=== PATIENT | female | born 1950 | race Caucasian/White ===

== ENCOUNTER → 2017-11-26 15:19 | Outpatient (CLI) | payer MEDICARE, OTHER, SELFPAY ==
--- NOTE | 2017-11-26 15:22 | MR_ITS ---
MR lumbar spine wo con, MR 3-d myelogram/MRCP HISTORY: LT sided LBP with pain, numbness, and tingling down lt leg. Bilateral hip pain. Symptoms XYRS. No trauma ITS.REASON: LUMBAGO WITH SCIATICA, LUMBAR DISC DISEASE ORDERING PHYSICIAN: Blaine Kyle MD PATIENT AGE: 67 years Comparison: MRI 06-28-13 TECHNIQUE: Standard multiplanar multiecho sequences are performed without contrast. 3-D MIP and myelographic images are also rendered and reviewed FINDINGS: The spinal cord ends at the T12-L1 level. Multilevel degenerative disc disease is present. T12-L1: Degenerative disc disease with mild bulging disc. L1-L2: Degenerative disc disease with bulging disc with type I endplate changes. There is moderate left-sided foraminal narrowing. L2-L3: Degenerative disc disease with bulging disc with facet and ligamentum hypertrophy with bilateral lateral recess narrowing and mild bilateral foraminal narrowing. L3-L4: Degenerative disc disease with bulging disc along with facet and ligamentum flavum hypertrophy with moderate lateral recess narrowing right greater than left and mild to moderate bilateral foraminal narrowing. L4-L5: Degenerative disc disease with bulging disc along with facet and ligamentum hypertrophy. There is minimal right paracentral disc protrusion. There is moderate right-sided lateral recess narrowing. There is 3 mm anterolisthesis of L4 on L5. There is moderate right-sided foraminal narrowing. L5-S1: Disc disease with bulging disc facet and ligamentum flavum hypertrophy. There is moderate left-sided foraminal narrowing. There is mild lumbar scoliosis convex right and there is 5 mm right lateral translation of L2 on L3. IMPRESSION: Multilevel degenerative disc disease with bulging disc along with facet and ligamentum hypertrophy with foraminal and lateral recess narrowing. This is described in detail above. Please see above for detailed description at each level. No canal stenosis. Overall no significant change compared to the previous exam IMPRESSION:
== END ==
PROVIDERS: Family Provider Family Medicine; PCP Family Medicine; Visit Provider Family Medicine
DX: M54.42 Lumbago with sciatica, left side (principal); M54.41 Lumbago with sciatica, right side; M51.9 Unspecified thoracic, thoracolumbar and lumbosacral intervertebral disc disorder; M51.26 Other intervertebral disc displacement, lumbar region; M46.96 Unspecified inflammatory spondylopathy, lumbar region
CPT/HCPCS: 72148; 76376

== ENCOUNTER → 2018-03-17 09:40 | Outpatient (CLI) | payer MEDICARE, OTHER, SELFPAY ==
--- NOTE | 2018-03-17 09:43 | MM_ITS ---
MM Dig screening mamm BI w/CAD ORDERING PHYSICIAN : Erik Long PATIENT AGE: 67 years GENDER: Female COMPARISON: July 2016, May 2015, December 2012. INDICATION: ITS.REASON: SCREENING no hormones. No new complaints. Family history. Maternal aunt with breast cancer TECHNIQUE: Standard CC and MLO images were obtained. R2 CAD reviewed. FINDINGS: minimal residual fibroglandular elements throughout both breasts.Relatively lower density breast . No dominant mass nor suspicious calcification of concern. Scattered small intramammary nodes at the deep axillary left breast more so than right, appear stable... There is subtle accentuation of fibroglandular elements throughout both breasts but there is no history of 8 cm hormone this could be due to technique or some other medication effect. Clinical correlation required. Bilateral follow-up in one year adequate IMPRESSION: No significant new findings. No mass lesion evident. Follow-up in one year recommended . Only suggestion of perhaps subtle diffuse accentuation of fibroglandular elements-throughout both breasts.. Technique vs question possible exogenous hormones effect of some form. BI-RADS Category: 2 Benign Finding(s) RECOMMENDED FOLLOW-UP: 1YR 1 YEAR FOLLOW-UP (A letter has been sent to the patient regarding results of the study.)
== END ==
PROVIDERS: PCP Family Medicine; Visit Provider Obstetrics & Gynecology Gynecology
DX: Z12.31 Encounter for screening mammogram for malignant neoplasm of breast (principal)
CPT/HCPCS: 77067

== ENCOUNTER → 2018-12-23 10:55 | Outpatient (CLI) | payer MEDICARE, OTHER, SELFPAY | PROVIDERS: PCP Family Medicine; Visit Provider Family Medicine | DX: R00.2 Palpitations (principal) | CPT/HCPCS: 93005 ==

== ENCOUNTER → 2019-03-24 15:09 | Outpatient (CLI) | payer MEDICARE, OTHER, SELFPAY ==
--- NOTE | 2019-03-24 15:18 | MM_ITS ---
PROCEDURE: MM DIG SCREENING MAMM BI W/CAD Patient Age:68Y CLINICAL INDICATION: SCREENING no hormones but no new complaints. Family history: Maternal aunt with breast cancer COMPARISON: DIGMAMMS MAMMOGRAM SCREEN-INFORMATION SYSTEMS OPERATOR N/C from 03/14/2009 DMSB DIGITAL MAMM-SCREEN BILATERAL from 12/31/2011 DMDXUAVR DIG MAMM-DX UNIL ADD VIEWS-RT from 01/22/2012 DMSB DIG MAMM-SCREEN MAXIMINO from 01/05/2013 DMSB DIG MAMM-SCREEN MAXIMINO from 06/04/2015 DMSB DIG MAMM-SCREEN MAXIMINO W/CAD from 07/24/2016 [facility] MM Dig screening mamm BI w/CAD from 03/17/2018 TECHNIQUE: Standard CC and MLO images were obtained. R2 CAD reviewed. Additional CC view right breast, nipple profile FINDINGS: Minimal residual fibroglandular elements are seen bilaterally. No new areas of significant concern. No dominant or suspicious mass, no suspicious calcifications Left breast. No significant new findings. Stable small intramammary node lateral left breast 4.3 mm size Stable tissue inferior left breast MLO view Right breast no new areas of significant concern. Minor asymmetric areas density again seen today and similar to previous studies,-can be followed in 1 year Overall the study appears similar to digital mammogram from 2011 IMPRESSION: Stable bilateral mammogram. No new areas of significant concern Bilateral follow-up 1 year recommended; and should be emphasized/encouraged.. BI-RAD Category: 2 Benign Finding(s) FOLLOW-UP: 1YR 1 Year Follow-up (A letter has been sent to the patient regarding results of the study.) Dictated by: Sree Thorne MD 03/30/2019 13:28 Electronically signed by Sree Thorne MD in [place] 03/30/2019 13:28
== END ==
PROVIDERS: PCP Family Medicine; Visit Provider Obstetrics & Gynecology Gynecology
DX: Z12.31 Encounter for screening mammogram for malignant neoplasm of breast (principal)
CPT/HCPCS: 77067

== ENCOUNTER → 2020-01-23 09:27 | Outpatient (POV) | payer MEDICARE, OTHER, SELFPAY | PROVIDERS: Visit Provider Dermatology | DX: Z00.00 Encounter for general adult medical examination without abnormal findings (principal) ==

== ENCOUNTER → 2020-02-04 10:08 | Outpatient (CLI) | payer MEDICARE, OTHER, SELFPAY | PROVIDERS: PCP Family Medicine; Visit Provider Internal Medicine Gastroenterology | DX: Z01.818 Encounter for other preprocedural examination (principal) ==

== ENCOUNTER 2020-02-05 12:18 | Day surgery (SDC) | payer MEDICARE, OTHER, SELFPAY ==
[2020-01-30 16:18] VITALS: BMI 30.9
[2020-02-04 12:02] LABS: Coronavirus 19 IgG Antibody Negative (Negative); Coronavirus 19 IgM Antibody Negative (Negative)
[2020-02-05 13:37] VITALS: BP 151/66; PULSE 57; RESP 18; TEMP 36.7; O2SAT 99
--- NOTE | 2020-02-05 14:55 | HMH.ANESCL ---
[facility] Anesthesia Checklist - Structural Data Admitted From: Home Planned Operative Procedure/s: colonoscopy Consent for Planned Operative Procedure(s) Verified: Yes - Airway Assessment C-Spine Mobility Assessed: Yes TMJ Mobility Assessed: Yes Dentition: Good Dentition - Neurological Assessment Level of Consciousness: Awake, Alert, Appropriate - Anesthesia Plan Anesthesia Risk discussed: Yes Anesthesia Plan: Verified ASA Class: II Anesthesia Type: MAC [facility] History I have reviewed the patient's past medical history: Yes Medical History: Denies:: Cancer, Diabetes Mellitus Type 1, Diabetes Mellitus Type 2, Internal Pacemaker, MRSA, Seizures *Have you ever received a pneumonia vaccine?: Yes *Have you received a flu vaccine this season?: Yes Anesthesia experience/problems:: none Laterality Cases: Bilateral: Cataract Other Surgeries: No: Pacemaker Amputation: No Fractures: No - *Social History Alcohol Intake: never Substance Use Type: denies use *Occupational Status:: employed Housing: house Household Members: spouse *Travel in the last 8 weeks: None Family Hx:: No significant family history
--- NOTE | 2020-02-05 15:01 | P.PCN_ITS ---
[facility] Procedure Note Procedure Note:: Colonoscopy Procedure Report: Colonoscopy with cold snare polypectomy Endoscopist: Quentin Cummings II, MD Referring physician: Blaine Kyle MD Date of Procedure: February 05, 2020 Equipment: Olympus 180 variable stiffness pediatric colonoscope Sedation: MAC sedation Indication: Mrs. Evans is a 69-year-old female who is here for screening/surveillance colonoscopy. Her last colonoscopy 10 years ago was normal. She reports no abdominal pain, weight loss, change in her bowel habits or rectal bleeding. She reports no family history of colon cancer. Procedure: Prior to the procedure, a history and physical exam was performed, and patient's medications and allergies were reviewed. The risks, benefits and alternatives of the sedation and procedure were discussed with the patient. All questions were answered and informed consent was obtained. The patient was brought to the procedure room. Patient identification and proposed procedure were verified by the physician and the nurse. The patient was placed in a left lateral decubitus position and the scope was passed under direct vision. Throughout the procedure, the patient's blood pressure, pulse, and oxygen saturations were monitored continuously. The colonoscopy was accomplished without difficulty. The patient tolerated the procedure well. Findings: On digital rectal examination there was normal rectal tone. There were no external hemorrhoids. The colonoscope was introduced through the anal canal to the rectum and advanced to the cecum. The ileocecal valve and appendiceal orifice were identified. The scope was advanced a short distance into the ileum which appeared grossly normal. The scope was then withdrawn into the colon. Within the cecum there was a 3 to 4 mm polyp that was removed via cold snare polypectomy. The remaining ascending and transverse colon and mucosa were grossly normal. There were scattered diverticuli throughout the descending and sigmoid colon (LEFT colon). The rectum itself was normal. Upon retroflexion within the rectum there were grade 1-2 internal hemorrhoids. The preparation was excellent throughout with Crowell Preparation Score of 9. The cecal time was 12 minutes. Impression: 1. Diminutive cecal polyp 2. Left-sided diverticulosis 3. Grade 1-2 internal hemorrhoids Plan: I will follow up the polyp pathology and recommend repeat colonoscopy again in 7-10 years based upon the polyp histology. I would encourage fiber supplementation on a long-term daily maintenance basis.
[2020-02-05 15:05] VITALS: BP 93/66; PULSE 60; RESP 18; TEMP 36.6; O2SAT 95
[2020-02-05 15:15] VITALS: BP 115/69; PULSE 65; RESP 18; O2SAT 96
[2020-02-05 15:17] VITALS: O2SAT 97
[2020-02-05 15:25] VITALS: BP 125/81; PULSE 67; RESP 18; O2SAT 100
[2020-02-05 15:42] VITALS: BP 127/77; PULSE 54; RESP 18; O2SAT 96
== END 2020-02-05 15:42 | disposition home or self-care (01) ==
LOC: OUTP 12:19
PROVIDERS: PCP Family Medicine; Visit Provider Internal Medicine Gastroenterology
PROC: 0DJD8ZZ Inspection of Lower Intestinal Tract, Via Natural or Artificial Opening Endoscopic (ICD-10-PCS; CPT 45378; principal; 2020-02-05 13:30)
DX: Z12.11 Encounter for screening for malignant neoplasm of colon (principal); K63.5 Polyp of colon; K57.30 Diverticulosis of large intestine without perforation or abscess without bleeding; K64.0 First degree hemorrhoids; I10 Essential (primary) hypertension; E78.5 Hyperlipidemia, unspecified; K21.9 Gastro-esophageal reflux disease without esophagitis
CPT/HCPCS: 45385; 36415; 86328; 88305

== ENCOUNTER → 2020-11-06 15:00 | Outpatient (CLI) | payer MEDICARE, OTHER, SELFPAY ==
--- NOTE | 2020-11-06 15:01 | MM_ITS ---
PROCEDURE: MM DIG SCREENING MAMM BI W/CAD Digital Breast Tomosynthesis Included CLINICAL INDICATION: screening COMPARISON: MG DMSB DIG MAMM-SCREEN MAXIMINO W/CAD from 07/24/2016 MG [facility] MM Dig screening mamm BI w/CAD from 03/17/2018 MG MM DIG SCREENING MAMM BI W/CAD from 03/24/2019 TECHNIQUE: Standard CC and MLO images and 3D Tomosynthesis was obtained. R2 CAD reviewed. FINDINGS: There are scattered fibroglandular elements which may obscure a lesion on mammography. No new dominant mass or indirect evidence of malignancy. No suspicious type microcalcifications. IMPRESSION: Normal bilateral digital screening mammograms. BI-RAD Category: 1 Negative FOLLOW-UP: 1 YR 1 Year Follow-up (A letter has been sent to the patient regarding results of the study.) Dictated by: Hernan Hudson MD 11/07/2020 15:55 Hernan Hudson MD in [place] 11/07/2020 15:55
== END ==
PROVIDERS: PCP Family Medicine; Visit Provider Obstetrics & Gynecology
DX: Z12.31 Encounter for screening mammogram for malignant neoplasm of breast (principal)
CPT/HCPCS: 77063; 77067

== ENCOUNTER → 2021-01-02 08:25 | Outpatient (CLI) | payer MEDICARE, OTHER, SELFPAY ==
[2021-01-02 10:10] LABS: Alanine Aminotransferase 29 U/L (12-78); Albumin Level 4.1 g/dl (3.5-5.0); Albumin/Globulin Ratio 1.8 (1.1-1.8); Alkaline Phosphatase 73 U/L (38-126); Anion Gap 13.2 mEq/L (5-15); Aspartate Amino Transferase 35 U/L (14-36); Bilirubin,Total 0.7 mg/dl (0.2-1.3); Blood Urea Nitrogen 16 mg/dl (7-17); Calcium 9.4 mg/dl (8.4-10.2); Carbon Dioxide 30 mmol/L (22.0-30.0); Chloride 103 mmol/L (98-107); Chol/HDL Ratio 3.6 (1-3.5); Cholesterol 199 mg/dl (140-200); Estimated Glomerular Filt Rate 83 ml/min (>60); GFR (African American) 101 ML/MIN (>60); Globulin 2.3 g/dL (1.3-3.2); Glucose 110 mg/dl (74-100); HDL Cholesterol 56 mg/dl (40-60); Potassium 4.2 mmoL/L (3.5-5.1); Sodium 142 mmol/L (136-145); Total Protein,Serum 6.4 g/dl (6.3-8.2); Triglycerides 120 mg/dl (30-150); VLDL Cholesterol 24 mg/dL (0-40)
[2021-01-02 10:21] LABS: Direct LDL Cholesterol 109.98 mg/dL (100-129)
[2021-01-02 11:15] LABS: Hemoglobin A1C 5.5 % (4.0-6.0)
== END ==
PROVIDERS: Visit Provider Physician Assistant
DX: I10 Essential (primary) hypertension (principal); R73.9 Hyperglycemia, unspecified; E78.00 Pure hypercholesterolemia, unspecified
CPT/HCPCS: 36415; 80053; 80061; 83036

== ENCOUNTER → 2021-12-11 13:11 | Outpatient (CLI) | payer MEDICARE, OTHER, SELFPAY ==
--- NOTE | 2021-12-11 13:11 | MM_ITS ---
PROCEDURE INFORMATION: Exam: MG Bilateral Screening 3D Mammography Exam date and time: 12/11/2021 1:17 PM Age: 71 years old Clinical indication: Screening examination TECHNIQUE: Imaging protocol: Bilateral Screening tomosynthesis and 2D mammography including computer-aided detection (CAD) when performed. COMPARISON: 1. MG MM DIG SCREENING MAMM BI W/CAD 11/06/2020 3:14 PM 2. MG MM DIG SCREENING MAMM BI W/CAD 03/24/2019 3:38 PM FINDINGS: MAMMOGRAPHY: Breast composition: There are scattered areas of fibroglandular density. Mass: None. Architectural distortion: None. Calcifications: No suspicious calcifications. Asymmetric density: None. Skin thickening: None. Axillary adenopathy: None. IMPRESSION: No mammographic evidence of malignancy. Annual screening is recommended unless otherwise clinically indicated. ASSESSMENT: BI-RADS Category 1: Negative
== END ==
PROVIDERS: PCP Family Medicine; Visit Provider Obstetrics & Gynecology
DX: Z12.31 Encounter for screening mammogram for malignant neoplasm of breast (principal)
CPT/HCPCS: 77063; 77067

== ENCOUNTER → 2021-12-29 10:44 | Outpatient (CLI) | payer MEDICARE, OTHER, SELFPAY | PROVIDERS: PCP Family Medicine; Visit Provider Family Medicine | DX: R00.2 Palpitations (principal) | CPT/HCPCS: 93225; 93226 ==

== ENCOUNTER → 2022-01-05 08:24 | Outpatient (CLI) | payer MEDICARE, OTHER, SELFPAY ==
--- NOTE | 2022-01-05 08:31 | CT_ITS ---
FINAL REPORT TECHNIQUE: Thin-section axial images were obtained through the heart and coronary arteries per CT coronary calcium score protocol. This study was performed with techniques to keep radiation doses as low as reasonably achievable (ALARA). Individualized dose reduction techniques using automated exposure control or adjustment of mA and/or kV according to the patient's size were employed. CLINICAL HISTORY: . family hx of CAD, screening FINDINGS: CT CORONARY CALCIUM SCORE W/O On the axial images, there is calcification within the left anterior descending coronary artery. This gives a coronary artery calcium score of 97 based on the Agatston scale. This coronary artery calcium score places the patient within the 70th percentile based on age and gender. The heart size is normal. There is no pleural or pericardial effusion. Limited evaluation of the lungs reveal no suspicious nodule. IMPRESSION: Coronary artery calcium score of 97 based on the Agatston scale placing the patient within the 70th percentile based on age and gender. Reviewed, Interpreted and Dictated by Devante Carroll III, MD Transcribed by Melissa Silva Authenticated and [facility]
== END ==
PROVIDERS: PCP Family Medicine; Visit Provider Family Medicine
DX: Z82.49 Family history of ischemic heart disease and other diseases of the circulatory system; Z13.6 Encounter for screening for cardiovascular disorders
CPT/HCPCS: 75571

== ENCOUNTER → 2022-04-14 13:12 | Outpatient (POV) | payer MEDICARE, OTHER, SELFPAY | PROVIDERS: Visit Provider Dermatology | DX: Z00.00 Encounter for general adult medical examination without abnormal findings (principal) ==

== ENCOUNTER → 2022-07-14 10:44 | Outpatient (CLI) | payer MEDICARE, OTHER, SELFPAY ==
--- NOTE | 2022-07-14 10:49 | XR_ITS ---
FINAL REPORT CLINICAL HISTORY: LT KNEE PAIN,POSITIVE FREIDA TEST OF LT KNEE FINDINGS: 3 views of the left knee were obtained. There is no acute fracture or dislocation. There are mild degenerative changes. There is a small joint effusion. IMPRESSION: Small joint effusion with mild degenerative change. Reviewed, Interpreted and Dictated by Devante Carroll III, MD Transcribed by Lee Montano Authenticated and [facility]
== END ==
PROVIDERS: PCP Family Medicine; Visit Provider Family Medicine
DX: M25.562 Pain in left knee (principal); S83.207A Unspecified tear of unspecified meniscus, current injury, left knee, initial encounter
CPT/HCPCS: 73562

== ENCOUNTER → 2022-07-28 15:39 | Outpatient (CLI) | payer MEDICARE, OTHER, SELFPAY ==
--- NOTE | 2022-07-28 15:42 | MR_ITS ---
FINAL REPORT CLINICAL HISTORY: LEFT KNEE PAIN posterior knee pain x 3 week s COMPARISON: None FINDINGS: Multiplanar MR imaging of the left knee was performed without contrast. There is medial meniscal degeneration with a high-grade partial tear of the posterior root. There is mild medial subluxation of the body of the medial meniscus. There is a probable tear of the anterior horn of the lateral meniscus. The anterior and posterior cruciate ligaments are intact. The medial collateral ligament and lateral ligamentous complex are intact. The patellar and quadriceps tendons are intact. There is no evidence of fracture. There is moderate degenerative change. There is mild and moderate chondromalacia, worst involving the patellofemoral compartment. A moderate joint effusion is seen. The musculature is intact. No soft tissue mass or cyst is identified. IMPRESSION: High-grade partial tear posterior root medial meniscus. Probable tear anterior horn lateral meniscus. Chondromalacia, worst involving patellofemoral compartment. Moderate joint effusion Reviewed, Interpreted and Dictated by Devante Carroll III, MD Transcribed by Sheron Reddy Authenticated and [facility]
== END ==
PROVIDERS: PCP Family Medicine; Visit Provider Family Medicine
DX: M25.562 Pain in left knee (principal); M25.462 Effusion, left knee; S83.207A Unspecified tear of unspecified meniscus, current injury, left knee, initial encounter
CPT/HCPCS: 73721

== ENCOUNTER → 2023-03-25 12:38 | Outpatient (CLI) | payer MEDICARE, OTHER, SELFPAY ==
--- NOTE | 2023-03-25 12:39 | MM_ITS ---
PROCEDURE INFORMATION: Exam: MG Bilateral Screening 3D Mammography Exam date and time: 03/25/2023 12:53 PM Age: 72 years old Clinical indication: Screening examination TECHNIQUE: Imaging protocol: Bilateral Screening tomosynthesis and 2D mammography including computer-aided detection (CAD) when performed. COMPARISON: 1. MG MM DIG SCREENING MAMM BI W/CAD 12/11/2021 1:17 PM 2. MG MM DIG SCREENING MAMM BI W/CAD 11/06/2020 3:14 PM FINDINGS: MAMMOGRAPHY: Breast composition: There are scattered areas of fibroglandular density. Mass: None. Architectural distortion: None. Calcifications: No suspicious calcifications. Asymmetric density: None. Skin thickening: None. Axillary adenopathy: None. IMPRESSION: No mammographic evidence of malignancy. Annual screening is recommended unless otherwise clinically indicated. ASSESSMENT: BI-RADS Category 1: Negative
== END ==
PROVIDERS: PCP Family Medicine; Visit Provider Nurse Practitioner Obstetrics & Gynecology
DX: Z12.31 Encounter for screening mammogram for malignant neoplasm of breast (principal)
CPT/HCPCS: 77063; 77067

== ENCOUNTER 2025-01-15 13:28 | Outpatient (CLI) | payer MEDICARE, OTHER, SELFPAY ==
--- OUTSIDE RECORDS SUMMARY | 2024-06-28 05:15 | XMS_ITS ---
[facility] [address] [id number] Care Team Providers Care Ivory Carver Name Role Phone Blaine Kyle Primary Care Provider Allergies Allergen (clinical drug ingredient) Drug/Non Drug Allergy documented on EMR Reaction Allergy Type Onset Date Status angiotensin-converting enzyme inhibitor (FN) JOSEPH Inhibitors Cough Drug Allergy Acti ve REASON FOR VISIT 6 month check Medications Medication SIG (Take, Route, Frequency, Duration) Notes Start Date End Date Status Fluticasone Propionate 50 MCG/ACT 1 spray in each nostril Nasally Twice a day 06/28/2024 Active Loratadine 10 MG 1 tablet Orally Once a day 03/15/2023 Not-Taking Montelukast Sodium 10 MG 1 tablet Orally Once a day 03/15/2023 Not-Taking Astepro 205.5 MCG/SPRAY 2 sprays (1 spra y in each nostril) Nasally Twice a day 06/28/2024 Active NexIUM 20 MG 1 cap(s) orally once a day Active Calcium + Vitamin D3 600-5 MG-MCG 1 tab(s) orally once daily Active AREDS AREDS 1 BID WITH MEALS A ctive Atorvastatin Calcium 40 MG 1 tab(s) orally once a day; Duration: 90 days Active Tylenol Extra Strength 500 MG 2 tab(s) orally every 6 hours Active Aspirin Adult Low Dose 81 MG 1 tab(s) orally once a day Active PreserVision AREDS - as directed Orally Active Melatonin 5 MG 1 tablet in the even ing Orally Once a day; Duration: 30 day(s) Active amLODIPine Besylate 5 MG 1 tablet Orally Once a day Active Benefiber - as directed Orally Active Irbesartan-hydroCHLOROthi azide 300-12.5 MG 1 tab(s) orally once a day Active Vital Signs Blood pressure systolic 132 mm Hg 06/28/19 25 Blood pressure diastolic 80 mm Hg 025 Heart Rate 62 /min 06/28/2024 Height 65 in 06/28/2024 Weight 165 lbs 06/28/2024 BMI 27.45 kg/m2 06/28/2024 Encounters Encounter Location Date Provider Diagnosis [facility] [address] [facility] [address] [facility] [address] [place] [id number] 06/28/2024 Blaine Kyle Essential hypertensi on I10 ; Pure hypercholesterolemia E78.00 and Allergic rhinitis, unspecified allergic rhinitis type J30.9 Assessments Encounter Date Diagnosis (ICD Code) Assessment Notes Treatment Notes Treatment Clinical Notes Section Notes 06/28/2024 Essential hypertensi on (ICD-10 - I10) 06/28/2024 Pure hypercholesterolemia (ICD-10 - E78.00) 06/28/2024 Allergic rhinitis, unspecified allergic rhinitis type (ICD-10 - J30.9) Plan Of Treatment Medication Medication Name Sig Start Date Stop Date Notes Fluticasone Propionate 50 MCG/ACT 1 spray in each nostril Nasally Twice a day 06/28/2024 Astepro 205.5 MCG/SPRAY 2 sprays (1 spra y in each nostril) Nasally Twice a day 06/28/2024 Atorvastatin Calcium 40 MG 1 tab(s) oral ly once a day; Duration: 90 days amLODIPine Besylate 5 MG 1 tablet Orally Once a day Irbesartan-hydroCHLOROthiazi de 300-12.5 MG 1 tab(s) orally once a day Next Appt Details Follow Up: 6 Months fasting, Reason: Provider Name:Blaine Carlton ry, 06/27/2025 09:45:00 AM, [address] [facility] [address] [facility], [address], [place], [id number], Progress Notes * Leslie EVANSDOB:1950 ([age] yo F)Acc No.[id number]:06/28/2024 Progress Notes Patient: Leslie ELIAS Account Number: Provider: Lela Kyle M.D. :1950 A ge:73 Y S ex:Female Date:06/28/2024 Address:[address], [id number] Subjective: * Chief Complaints: * 1 . 6 month check. * HPI: C ardiology: 73 year old female presents with c/o Blood Pressure Elevated?Pt here for 6 mo f/u on hypertension, states she is doing well and does not have any concerns.? c/o Hyperlipidemia P t is fasting today. * ROS: D ERMATOLOGY: no R lois. n o H coleman. G ASTROENTEROLOGY: no N ausea. n o V omiting. U ROLOGY: no D ifficulty urinating. n o B lood in urine. * Medical History: H ypertension, Lumbar Disc Disease with left S1 radiculopathy and spinal stenosis MRI 2009 & 2013, s/p neurosurgery eval in 2010, Carpal Tunnel, Smoking, Quit 2005, Restless Leg Syndrome, Sleep Apnea, [employer] - Dr. Fatima, GI - Dr. Navarro, Hyperlipidemia, Impaired fasting glucose, Allergic rhinitis. * Surgical History: D enies Past Surgical History. * Hospitalization/Major Diagno stic Procedure: D enies Past Hospitalization. * Family History: F ather: , Heart disease. M other: alive. Pt.s aunts on mother side have had breast cancer. * Social History: C URRENT TOBACCO USE S moking Status: Patient does NOT smoke. C affeine: yes, frequency: Diet Mt. Dew 3 daily. Exercise: no. Marital Status: . Past smoking status: no, Pt. quit in June 2005, 20 pack year history. Alcohol: Type: Beer , Frequency: Occasionally ,Years: , Determination:. * Medications: T aking Benefiber - Powder as directed Orally , Taking Melatonin 5 MG Tablet 1 tablet in the evening Orally Once a day , Taking PreserVision AREDS - Capsule as directed Orally , Taking AREDS AREDS SOFT GEL 1 BID WITH MEALS , Taking Calcium + Vitamin D3 600-5 MG-MCG Tablet 1 tab(s) orally once daily , Taking Aspirin Adult Low Dose 81 MG Tablet Delayed Release 1 tab(s) orally once a day , Taking Tylenol Extra Strength 500 MG Tablet 2 tab(s) orally every 6 hours , Taking NexIUM 20 MG Capsule Delayed Release 1 cap(s) orally once a day , Taking Atorvastatin Calcium 40 MG Tablet 1 tab(s) orally once a day , Taking amLODIPine Besylate 5 MG Tablet 1 tablet Orally Once a day , Taking Irbesartan-hydroCHLOROthiazide 300-12.5 MG Tablet 1 tab(s) orally once a day , Not-Taking Montelukast Sodium 10 MG Tablet 1 tablet Orally Once a day , Not- Taking Loratadine 10 MG Tablet 1 tablet Orally Once a day , Medication List reviewed and reconciled with the patient * Allergies: A CE Inhibitors: Cough. Objective: * Vitals: W t:165, Temp:97.8, BP:132/80, HR:62, Nurse:yanelis, Ht: 65, BMI:27.45. * Examination: C ardiology: General Appearance: p leasant, NAD. H EENT: n peace patent, turbinates swollen, pale without polyps. H eart sounds: R RR, normal S1, S2. M urmur, click , gallop: n one. L ungs: c lear, no rales or wheezes. E xtremities: n o leg edema. Assessment: * Assessment: 1. E ssential hypertension - I10 (Primary) 2 . P ure hypercholesterolemia - E78.00 3 . A llergic rhinitis, unspecified allergic rhinitis type - J30.9 ? Plan: * Treatment: 2. P ure hypercholesterolemia Refill Atorvastatin Calcium Tablet, 40 MG, 1 tab(s), orally, once a day, 90 days, 90, Refills 1.? 3. A llergic rhinitis, unspecified allergic rhinitis type Start Astepro Solution, 205.5 MCG/SPRAY, 2 sprays (1 spray in each nostril), Nasally, Twice a day;?Start Fluticasone Propionate Suspension, 50 MCG/ACT, 1 spray in each nostril, Nasally, Twice a day. * Procedure Codes: G 2211 Complex e/m visit add on, 3075F SYST BP GE 130 - 139MM HG, 3079F DIAST BP 80-89 MM HG * Follow Up: 6 Months fasting * Images: Billing Information: * Visit Code: 88212 Office Visit, Est Pt., Level 4. * Procedure Codes: G2211 Complex e/m visit add on. 3075F SYST BP GE 130 - 139MM HG. 3079F DIAST BP 80-89 MM HG. * Electronic signature of Milagro Kyle MD on 01/15/2025 at 01:36 PM EDT Sign off status: Pending * Provider: Lela Kyle M.D. Date: 0 06/28/2024 Generated for Jen prakash/Delilah/Slimeitting on: 0 01/15/2025 01:36 PM EDT History and Physical Notes * HPI (History of Present Illness) Category Sub-Category Detail Notes Category Not es Cardiology Blood Pressure Elevated Pt here for 6 mo f/u on hypertension, states she is doing well and does not have any concerns Hyperlipidemia Pt is fasting today Examination Category Sub-Category Detail Notes Category Not es Cardiology Lungs: clear, no rales or wheezes HEENT: nares patent, turbin ates swollen, pale without polyps Heart sounds: RRR, normal S1, S2 Extremities: no leg edema Murmur, click , gallop: none General Appearance: pleasant, NAD
--- OUTSIDE RECORDS SUMMARY | 2024-08-21 11:45 | XMS_ITS ---
Author Organization [facility] Address [address] [facility] [address] [place] [id number] Care Team Providers Care Nuclear Weapons Custodian Name Role Phone Blaine Kyle Primary Care Provider Allergies Allergen (clinical drug ingredient) Drug/Non Drug Allergy documented on EMR Reaction Allergy Type Onset Date Status angiotensin-converting enzyme inhibitor (FN) JOSEPH Inhibitors Cough Drug Allergy Acti ve Results Component Value Reference Range Notes Influenza Screen (in house) Reviewed date:08/22/2024 12:35:23 PM Interpretation: Performing Lab: Notes/Report: results Pos A REASON FOR VISIT cold getting worse Medications Medication SIG (Take, Route, Frequency, Duration) Notes Start Date End Date Status Tylenol Extra Strength 500 MG 2 tab(s) orally every 6 hours Active Aspirin Adult Low Dose 81 MG 1 tab(s) orally once a day Active NexIUM 20 MG 1 cap(s) orally once a day Active PreserVision AREDS - as directed Orally Active Melatonin 5 MG 1 tablet in the even ing Orally Once a day; Duration: 30 day(s) Active Benefiber - as directed Orally Active Calcium + Vitamin D3 600-5 MG-MCG 1 tab(s) orally once daily Active AREDS AREDS 1 BID WITH MEALS A ctive Irbesartan-hydroCHLOROthiaz anoop 300-12.5 MG 1 tab(s) orally once a day Active amLODIPine Besylate 5 MG 1 tablet Orally Once a day Active Atorvastatin Calcium 40 MG 1 tab(s) oral ly once a day; Duration: 90 days Active Fluticasone Propionate 50 MCG/ACT 1 spray in each nostril Nasally Twice a day 06/28/2024 Active Astepro 205.5 MCG/SPRAY 2 sprays (1 spra y in each nostril) Nasally Twice a day 06/28/2024 Active Benzonatate 200 MG 1 capsule as needed Orally Three times a day 08/21/2024 Active Promethazine-DM 6.25-15 MG/5ML 5 ml as needed Orally every 6 hrs 08/21/2024 Active Tamiflu 75 MG 1 capsule Orally Twi ce a day; Duration: 5 day(s) 08/21/2024 Active Vital Signs Blood pressure systolic 134 mm Hg 08/22/19 25 Blood pressure diastolic 80 mm Hg 025 Heart Rate 71 /min 08/21/2024 Height 65 in 08/21/2024 Weight 171 lbs 08/21/2024 BMI 28.45 kg/m2 08/21/2024 Encounters Encounter Location Date Provider Diagnosis [facility] [address] [place] [id number] 08/21/2024 Blaine Kyle Influenza A J 10.1 Assessments Encounter Date Diagnosis (ICD Code) Assessment Notes Treatment Notes Treatment Clinical Notes Section Notes 08/21/2024 Influenza A (ICD-10 - J10.1) Plan Of Treatment Medication Medication Name Sig Start Date Stop Date Notes Benzonatate 200 MG 1 capsule as needed Orally Three times a day 08/21/2024 Promethazine-DM 6.25-15 MG/5ML 5 ml as n eeded Orally every 6 hrs 08/21/2024 Tamiflu 75 MG 1 capsule Orally Twi ce a day; Duration: 5 day(s) 08/21/2024 Next Appt Details Follow Up: prn, Reason: Provider Name:Blaine Carlton ry, 06/27/2025 09:45:00 AM, [address], [address], [place], [id number], Progress Notes * Leslie EVANSDOB:1950 (9 2 yo F)Acc No.[id number]:08/21/2024 Progress Notes Patient: Chi NILSAAmritna Provider: Lela Kyle M.D. :1950 A ge:73 Y S ex:Female Date:08/21/2024 Address:[address], [id number] Subjective: * Chief Complaints: * 1 . Cold getting worse. * HPI: E NT/respiratory: 73 year old female presents with c/o cough P t complains of dry without any sputum production cough that started Wednesday. Associated with sneezing, sore throat, headache and bodyaches. Pt states she was around a friend that was dx with Flu on Wednesday . ? * ROS: D ERMATOLOGY: no R lois. 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 Navarro, [...] ,Years: , Determination:. * Medications: T aking Atorvastatin Calcium 40 MG Tablet 1 tab(s) orally once a day , Taking Astepro 205.5 MCG/SPRAY Solution 2 sprays (1 spray in each nostril) Nasally Twice a day , Taking Fluticasone Propionate 50 MCG/ACT Suspension 1 spray in each nostril Nasally Twice a day , Taking amLODIPine Besylate 5 MG Tablet 1 tablet Orally Once a day , Taking Irbesartan-hydroCHLOROthiazide 300-12.5 MG Tablet 1 tab(s) orally once a day , Taking Benefiber - Powder as directed Orally , [...] 1 cap(s) orally once a day , Discontinued Montelukast Sodium 10 MG Tablet 1 tablet Orally Once a day , Discontinued Loratadine 10 MG Tablet 1 tablet Orally Once a day , Medication List reviewed and reconciled with the patient * Allergies: A CE Inhibitors: Cough. Objective: * Vitals: W t: 171, Temp: 97.7, BP: 134/80, HR: 71, O2 Sat: 98% on RA, Nurse: yanelis, Ht: 65, BMI:28.45. * Examination: E NT/Respiratory: General Appearance: N AD. E yes: P ERRLA, sclera clear. O ral cavity : erythema without exudate on pharynx. N trae : n o cervical lymphadenopathy. H eart : R RR, normal S1 S2. L ungs: c lear to auscultation bilaterally. Assessment: * Assessment: 1. I puma A - J10.1 (Primary) Plan: * Treatment: Value Reference Range r esults Pos A * Sherley Lynn 08/21/2024 03:53: 13 PM > Provider reviewed results while patient in office. * Procedure Codes: G 2211 Complex e/[place], [address] [place], [address] Flu Test- Nasal Swab, Modifiers: QW , 3075F SYST BP GE 130 - 139MM HG, 3079F DIAST BP 80-89 MM HG * Follow Up: p rn * Images: Billing Information: * Visit Code: 86141 Office Visit, Est Pt., Level 3. * Procedure Codes: G2211 Complex e/[place] [address] [place] [address] Flu Test- Nasal Swab. Modifiers: QW 3075F SYST BP GE 130 - 139MM HG. 3079F DIAST BP 80-89 MM HG. * Electronic signature of Milagro Kyle MD on 01/15/2025 at 01:35 PM EDT Sign off status: Pending * Provider: Lela Kyle M.D. Date: 0 08/21/2024 Generated for Jen prakash/Delilah/eTransmraz on: 0 01/15/2025 01:35 PM EDT History and Physical Notes * HPI (History of Present Illness) Category Sub-Category Detail Notes Category Not es ENT/respiratory cough Pt complains of dry without any sputum production cough that started Wednesday. Associated with sneezing, sore throat, headache and bodyaches. Pt states she was around a friend that was dx with Flu on Wednesday Examination Category Sub-Category Detail Notes Category Not es ENT/Respiratory Oral cavity : erythema without exudate on pharynx Neck : no cervical lymphade nopathy Heart : RRR, normal S1 S2 Lungs: clear to auscultatio n bilaterally General Appearance: NAD Eyes: PERRLA, sclera clear
--- OUTSIDE RECORDS SUMMARY | 2024-12-27 05:15 | XMS_ITS ---
Author Organization [facility] Address [address] [facility] [address] [place], [place] [id number] Care Team Providers Care Nurse Companion Name Role Phone Blaine Kyle Primary Care Provider Allergies Allergen (clinical drug ingredient) Drug/Non Drug Allergy documented on EMR Reaction Allergy Type Onset Date Status angiotensin-converting enzyme inhibitor (FN) JOSEPH Inhibitors Cough Drug Allergy Acti ve Results Component Value Reference Range Notes Glucose (In-House) Reviewed date:12/28/2024 12:14:44 PM Interpretation:123 Performing Lab: Notes/Report: 123 blood glucose 123 74 - 106 mg/dL Glycohemoglobin A1c (in hous e) Reviewed date:12/28/2024 12:14:44 PM Interpretation:5.5 Normal Performing Lab: Notes/Report: 5.5 Normal glycohemoglobin 5.5% 5 - 6.5 % P-Comprehensive Metabolic Pa harleen (CMP) Reviewed date:12/28/2024 12:14:43 PM Interpretation:Normal Performing Lab: Notes/Report: Test performed by [facility] , [address], [place] [address] Tyrese Zavaleta MD, Teacher Dancing CLIA: [id number] Sodium 137 135-145 mmol/L Potassium 4.3 3.5-5.3 mmol/L Chloride 99 97-108 mmol/L CO2 29 20-32 mmol/L Glucose 101 65-99 mg/dL BUN 10 8-23 mg/dL Creatinine 0.68 0.50-1.00 mg/dL Calcium 9.7 8.6-10.4 mg/dL eGFR by Creatinine 92 >59 mL/min/1.73m2 Protein 6.7 6.0-8.3 g/dL Albumin 4.6 3.5-5.3 g/dL Alkaline Phosphatase 93 35-121 IU/L ALT (SGPT) 25 <5-47 IU/L AST (SGOT) 32 <5-40 IU/L Bilirubin, Total 0.7 <0.2-1.2 mg/dL A/G Ratio 2.2 1.1-2.5 P-Ferritin Reviewed date:12/28/2024 12:14:43 PM Interpretation:Normal Performing Lab: Notes/Report: Test performed by [facility] [address] [place], [place] [address], [place] [address] Tyrese Zavaleta MD, Teacher Dancing CLIA: [id number] Ferritin 136.0 13.0-301.0 ng/mL P-Lipid Panel Reviewed date:12/28/2024 12:14:43 PM Interpretation:chol 209, non-hdl 149 Performing Lab: Notes/Report: Test performed by [facility] [address] [place], [place] [address], [place] [address] Tryese Zavaleta MD, Teacher Dancing CLIA: [id number] Cholesterol 209 <200 mg/dL Triglycerides 134 <150 mg/dL HDL Cholesterol 60 >39 mg/dL Cholesterol / HDL Ratio 3.48 0.00-4.44 Ratio Non-HDL Cholesterol 149 <130 mg/dL LDL Cholesterol (Calculation) 122 <130 mg/dL LDL Cholesterol Levels* Less than 100 mg/dL Optimal 100 to 129 mg/dL Near Optimal/ Above Optimal 130 to 159 mg/dL Borderline High 160 to 189 mg/dL High 190 mg/dL and above Very High * Categories as recommended by the 2004 ATPIII guidelines LDL/HDL Ratio 2.0 <3.3 Ratio LDL Cholesterol Patient History Test Date: 12/29/2023 LDL Results: 93 Units: mg/dL % Change: - Test Date: 12/27/2024 LDL Results: 122 Units: mg/dL % Change: +31% P-TSH reflex to FT4 Reviewed date:12/28/2024 12:14:43 PM Interpretation:Normal Performing Lab: Notes/Report: Test performed by [facility] [address] [place] [address] , [place] [address] Tyrese Zavaleta MD, Teacher Dancing CLIA: [id number] TSH reflex to FT4 2.35 0.43-5.25 mU/L P-Microalbumin/Creatinine, R andom Urine Sample Reviewed date:12/28/2024 12:14:43 PM Interpretation:Normal Performing Lab: Notes/Report: Test performed by [facility] [address] [place], [place] [address] , [place] [address] Tyrese Zavaleta MD, Teacher Dancing CLIA: [id number] Albumin/Creatinine Ratio, Urine <13.76 0-30 ug/m g Microalbumin, Urine, Random <0.3 Creatinine, Urine 21.8 REASON FOR VISIT 6 month check fasting labs Medications Medication SIG (Take, Route, Frequency, Duration) Notes Start Date End Date Status PreserVision AREDS - as directed Orally Active amLODIPine Besylate 5 MG 1 tablet Orally Once a day Active Melatonin 5 MG 1 tablet in the even ing Orally Once a day; Duration: 30 day(s) Active Benefiber - as directed Orally Active Fluticasone Propionate 50 MCG/ACT 1 spray in each nostril Nasally Twice a day 06/28/2024 Active Irbesartan-hydroCHLOROthiaz anoop 300-12.5 MG 1 tab(s) orally once a day Active Atorvastatin Calcium 40 MG 1 tab(s) oral ly once a day Active Astepro 205.5 MCG/SPRAY 2 sprays (1 spra y in each nostril) Nasally Twice a day 06/28/2024 Active Tylenol Extra Strength 500 MG 2 tab(s) orally every 6 hours Active Aspirin Adult Low Dose 81 MG 1 tab(s) orally once a day Active Calcium + Vitamin D3 600-5 MG-MCG 1 tab(s) orally once daily Active NexIUM 20 MG 1 cap(s) orally once a day Active AREDS AREDS 1 BID WITH MEALS A ctive Problems Problem Type SNOMED Code ICD Code Onset Dates Problem Status W/U Status Risk Notes Problem BMI 30.0-30.9,ad ult (Z68.30) Active confirmed Vital Signs Blood pressure systolic 130 mm Hg 12/28/19 25 Blood pressure diastolic 78 mm Hg 025 Heart Rate 67 /min 12/27/2024 Height 65 in 12/27/2024 Weight 182.8 lbs 12/27/2024 BMI 30.42 kg/m2 12/27/2024 Encounters Encounter Location Date Provider Diagnosis [facility] [address] [facility] [address] [place] [address], [place] [id number] 12/27/2024 Blaine Kyle Essential hypertensi on I10 ; Pure hypercholesterolemia E78.00 ; IFG (impaired fasting glucose) R73.01 ; Restless leg G25.81 ; Breast cancer screening by mammogram Z12.31 ; Osteoporosis screening Z13.820 ; Gastroesophageal reflux disease, esophagitis presence not specified K21.9 and BMI 30.0-30.9,adult Z68.30 Assessments Encounter Date Diagnosis (ICD Code) Assessment Notes Treatment Notes Treatment Clinical Notes Section Notes 12/27/2024 Essential hypertensi on (ICD-10 - I10) 12/27/2024 Pure hypercholesterolemia (ICD-10 - E78.00) 12/27/2024 IFG (impaired fastin g glucose) (ICD-10 - R73.01) 12/27/2024 Restless leg (ICD-10 - G25.81) 12/27/2024 Breast cancer screen ing by mammogram (ICD-10 - Z12.31) 12/27/2024 Osteoporosis screeni ng (ICD-10 - Z13.820) 12/27/2024 Gastroesophageal ref lux disease, esophagitis presence not specified (ICD-10 - K21.9) 12/27/2024 BMI 30.0-30.9,adult (ICD-10 - Z68.30) Plan Of Treatment Medication Medication Name Sig Start Date Stop Date Notes amLODIPine Besylate 5 MG 1 tablet Orally Once a day Irbesartan-hydroCHLOROthiazi de 300-12.5 MG 1 tab(s) orally once a day Atorvastatin Calcium 40 MG 1 tab(s) orally once a day Pending Test Test Name Order Date Mammogram 12/27/2024 Next Appt Details Follow Up: 6 Months, Reason: Provider Name:Blaine Carlton ry, 06/27/2025 09:45:00 AM, [address], [address], [place], [place], [id number], Progress Notes * Leslie EVANSDOB:1950 ([age] yo F)Acc No.[id number]:12/27/2024 Progress Notes Patient: Leslie ELIAS Provider: Lela Kyle M.D. :1950 A ge:74 Y S ex:Female Date:12/27/2024 Address:[address], [place], [id number] Subjective: * Chief Complaints: * 1 . 6 month check fasting labs. * HPI: C ardiology: 74 year old female presents with c/o Blood Pressure Elevated?Pt here for 6 mo check up on hypertension. Pt states she is doing well and does not have any concerns. c/o Hyperlipidemia P t is fasting today. 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 Navarro, Hyperlipidemia, Impaired fasting glucose, Allergic rhinitis. * Surgical History: D enies Past Surgical History. * Hospitalization/Major Diagno stic Procedure: D enies Past Hospitalization. * Family History: F ather: , Heart disease. M other: alive. Pt.s aunts on mother side have had breast cancer. * Social History: C URRENT TOBACCO USE: No . C affeine: yes, frequency: Diet Mt. Dew [...] nostril Nasally Twice a day , Taking Benefiber - Powder [...] cap(s) orally once a day , Taking amLODIPine Besylate 5 MG Tablet 1 tablet Orally Once a day , Taking Irbesartan-hydroCHLOROthiazide 300-12.5 MG Tablet 1 tab(s) orally once a day , Discontinued Tamiflu 75 MG Capsule 1 capsule Orally Twice a day , Discontinued Promethazine-DM 6.25-15 MG/5ML Syrup 5 ml as needed Orally every 6 hrs , Discontinued Benzonatate 200 MG Capsule 1 capsule as needed Orally Three times a day , Medication List reviewed and reconciled with the patient * Allergies: A CE Inhibitors: Cough. Objective: * Vitals: W t: 182.8, Temp: 97.9, BP: 130/78, HR: 67, Nurse: yanelis, Ht: 65, BMI:30.42. * Examination: C ardiology: General Appearance: p leasant, NAD. H EENT: u nremarkable. H eart sounds: R RR, normal S1, S2. M urmur, click , gallop: n one. L ungs: c lear, no rales or wheezes. E xtremities: n o leg edema. Assessment: * Assessment: 1. E ssential hypertension - I10 (Primary) 2 . P ure hypercholesterolemia - E78.00 3 . I FG (impaired fasting glucose) - R73.01 4 . R estless leg - G25.81 5 . B reast cancer screening by mammogram - Z12.31 & #160; 6 . O steoporosis screening - Z13.820 7 . G astroesophageal reflux disease, esophagitis presence not specified - K21.9 8 . B MT 30.0-30.9,adult - Z68.30 Plan: * Treatment: Value Reference Range A /G Ratio 2.2 1.1-2.5 - * A lbumin 4.6 3.5-5.3 - g/dL * A lkaline Phosphatase 93 35-121 - IU/L * A LT (SGPT) 25 <5-47 - IU/L * A ST (SGOT) 32 <5-40 - IU/L * B ilirubin, Total 0.7 <0.2-1.2 - mg/dL * B UN 10 8-23 - mg/dL * C alcium 9.7 8.6-10.4 - mg/dL * C hloride 99 97-108 - mmol/L * C O2 29 20-32 - mmol/L * C reatinine 0.68 0.50-1.00 - mg/dL * G lucose 101 H 65-99 - mg/dL * P otassium 4.3 3.5-5.3 - mmol/L * S odium 137 135-145 - mmol/L * P rotein 6.7 6.0-8.3 - g/dL * e GFR by Creatinine 92 >59 - mL/min/1.73m2 * Christa Hernandez 12:14:35 PM EDT > See phone encounter ?LAB: P-Microalbumin/Creatinine, Random Urine Sample (Collection Date & Time - 12/27/2024 08:40 AM)?Normal* Value Reference Range A lbumin/Creatinine Ratio, Urine <13.76 0-30 - ug /mg * C reatinine, Urine 21.8 - mg/dL * M icroalbumin, Urine, Random <0.3 - mg/dL * Christa Hernandez 12:14:35 PM EDT > See phone encounter 2.?Pure hypercholesterolemia? Continue Atorvastatin Calcium Tablet, 40 MG, 1 tab(s), orally, once a day.?LAB: P-Comprehensive Metabolic Panel (CMP) (Collection Date & Time - 12/27/2024 08:40 AM)?Normal* Value Reference Range A /G Ratio 2.2 1.1-2.5 - * A lbumin 4.6 3.5-5.3 - g/dL * A lkaline Phosphatase 93 35-121 - IU/L * A LT (SGPT) 25 <5-47 - IU/L * A ST (SGOT) 32 <5-40 - IU/L * B ilirubin, Total 0.7 <0.2-1.2 - mg/dL * B UN 10 8-23 - mg/dL * C alcium 9.7 8.6-10.4 - mg/dL * C hloride 99 97-108 - mmol/L * C O2 29 20-32 - mmol/L * C reatinine 0.68 0.50-1.00 - mg/dL * G lucose 101 H 65-99 - mg/dL * P otassium 4.3 3.5-5.3 - mmol/L * S odium 137 135-145 - mmol/L * P rotein 6.7 6.0-8.3 - g/dL * e GFR by Creatinine 92 >59 - mL/min/1.73m2 * Christa Hernandez 12:14:35 PM EDT > See phone encounter ?LAB: P-Lipid Panel (Collection Date & Time - 12/27/2024 08:40 AM)?chol 209, non-hdl 149* Value Reference Range C holesterol / HDL Ratio 3.48 0.00-4.44 - Ratio * C holesterol 209 H <200 - mg/dL * H DL Cholesterol 60 >39 - mg/dL * L DL Cholesterol (Calculation) 122 <130 - mg/d L * L DL/HDL Ratio 2.0 <3.3 - Ratio * N on-HDL Cholesterol 149 H <130 - mg/dL * T riglycerides 134 <150 - mg/dL * Christa Hernandez 12:14:35 PM EDT > See phone encounter ?LAB: P-TSH reflex to FT4 (Collection Date & Time - 12/27/2024 08:40 AM)? Normal* Value Reference Range T SH reflex to FT4 2.35 0.43-5.25 - mU/L * Christa Hernandez 12:14:35 PM EDT > See phone encounter 3.?IFG (impaired fasting glucose)?LAB: Glucose (In-House) (Collection Date & Time - 12/27/2024)?123* Value Reference Range b lood glucose 123 74 - 106 mg/dL * Sherley Lynn 12/27/2024 12:03:4 2 PM EDT > Christa Hernandez 12/28/2024 12:14:35 PM EDT > See phone encounter ?LAB: Glycohemoglobin A1c (in house) (Collection Date & Time - 12/27/2024)? 5.5 Normal* Value Reference Range g lycohemoglobin 5.5% 5 - 6.5 % * Sherley Lynn 12/27/2024 12:03:5 6 PM EDT > Christa Hernandez 12/28/2024 12:14:35 PM EDT > See phone encounter 4.?Restless leg?LAB: P-Ferritin (Collection Date & Time - 12/27/2024 08:40 AM)?Normal* Value Reference Range F erritin 136.0 13.0-301.0 - ng/mL * DavidChristaAstrid 12:14:35 PM EDT > See phone encounter 5.?Breast cancer screening by mammogram?Imaging: Mammogram* Nina Tamez 12/27/2024 09:46 :50 AM EDT > faxed to [facility] Scheduling * Procedure Codes: G 2211 Complex e/[place], [address] GLUCOSE TEST, 62492 GLYCATED HEMOGLOBIN TEST, Modifiers: QW , 3044F HG A1C LEVEL LT 7.0%, 1036F TOBACCO NON-USER, G8950 PREHTN/HTN BP DOC INDCD F/U DOC, G8752 MOST RECENT SYSTOLIC BP < 140MM HG, G8754 MOST RECENT DIASTOLIC BP < 90MM HG * Follow Up: 6 Months * Images: Drawing:[facility] Billing Information: * Visit Code: 76402 Office Visit, Est Pt., Level 4. * Procedure Codes: G2211 Complex e/[place]. [address] GLUCOSE TEST. 16695 GLYCATED HEMOGLOBIN TEST. Modifiers: QW 3044F HG A1C LEVEL LT 7.0%. 1036F TOBACCO NON-USER. G8950 PREHTN/HTN BP DOC INDCD F/U DOC. G8752 MOST RECENT SYSTOLIC BP < 140MM HG. G8754 MOST RECENT DIASTOLIC BP < 90MM HG. * Electronic signature of Milagro Kyle MD on 01/15/2025 at 01:35 PM EDT Sign off status: Pending * Provider: Lela Kyle M.D. Date: 12/27/2024 Generated for Jen ng/Vinnieg/eTransmitting on: 01/15/2025 01:35 PM EDT History and Physical Notes * HPI (History of Present Illness) Category Sub-Category Detail Notes Category Not es Cardiology Blood Pressure Elevated Pt here for 6 mo check up on hypertension. Pt states she is doing well and does not have any concerns Hyperlipidemia Pt is fasting today Examination Category Sub-Category Detail Notes Category Not es Cardiology Lungs: clear, no rales or wheezes HEENT: unremarkable Heart sounds: RRR, normal S1, S2 Extremities: no leg edema Murmur, click , gallop: none General Appearance: pleasant, NAD
--- NOTE | 2025-01-15 13:32 | XR_ITS ---
FINAL REPORT CLINICAL HISTORY: screening COMPARISON: None FINDINGS: Using L1-4, the bone mineral density of the spine is 1.192 g/cm2, corresponding to T-score of 1.3, and a Z-score of 3.6. This corresponds to a diagnosis of normal. Using the left hip, the bone mineral density of the femoral neck is 0.820 g/cm2, corresponding to a T-score of -1.0, and a Z-score of 0.6. This corresponds to a diagnosis of osteopenia. Using the right hip, the bone mineral density of the femoral neck is 0.857 g/cm2, corresponding to a T-score of -0.7 and a Z-score of 0.9. This corresponds to a diagnosis of normal. NOTE: T-score: Standard deviation compared with peak bone mass of young adult mean. *Following the recommendations of the International Society of Bone densitometry, classification of hip BMD is based on the lower of two T-scores; total hip or femoral neck. IMPRESSION: Normal bone mineral density of the lumbar spine and right hip. Diminished bone mineral density of the left hip corresponds to a diagnosis of osteopenia. Reviewed, Interpreted and Dictated by Nancy Cruz MD Transcribed by Rocio Mckeon Authenticated and [facility]
--- OUTSIDE RECORDS SUMMARY | 2025-01-15 13:35 | XMS_ITS | Clinical Summary ---
[facility] Address [address] [place] [address] Care Team Providers Care Circus Laborer Name Role Phone Blaine Kyle MD Primary Care Provider [phone] Social History Tobacco Use Types Packs/Day Years Used Date Smoking Tobacco: Never Assessed Abuse Screen Answer Date Recorded Unsafe at Home or Work/School Not on file Feels Threatened by Someone? Not on file 04/2023 Does Anyone Keep You from Co ntacting Others or Doint Things Outside the Home? Not on file 03/04/2023 Physical Sign of Abuse Present Not on file 1 Housing Stability Answer Date Recorded Current Living Arrangements Not on file 02/21 Potentially Unsafe Housing Conditions Not on shannen e 03/04/2023 Family and Community Support Answer Abhishek e Recorded Help with Day-to-Day Activities Not on file 03/04/2023 Lonely or Isolated Not on file 03/04/2023 Employment Answer Date Recorded Do you want help finding or keeping work or a lavelle b? Not on file 03/04/2023 Disabilities Answer Date Recorded Concentrating, Remembering, or Making Decisions Difficulty Not on file 03/04/2023 Doing Errands Independently Difficulty Not on fi le 03/04/2023 Education Answer Date Recorded Help with school or training? Not on file Preferred Language Not on file 03/04/2023 Comments Unknown Sex and Gender Information Value Date Recorded Sex Assigned at Not on file Legal Sex Female 11:48 AM EDT Gender Identity Not on file Sexual Orientation Not on file Plan of Treatment Health Maintenance Due Date Last Done Comments ANNUAL PHYSICAL 1950 DXA SCAN 1950 HEPATITIS C SCREENING 1950 TDAP/TD VACCINES (1 - Tdap) 10/04/1971 MAMMOGRAM 1992 COLOGUARD 1997 COLON CANCER SCREENING 5 YEAR SIGMOIDOSCOPY 1997 COLONOSCOPY 1997 [address] CANCER SCREENING 1997 CT COLONOGRAPHY 1997 FECAL OCCULT BLOOD TEST 1997 FIT Testing (1 year) 1997 Pneumococcal Vaccine 50+ (1 of 1 - PCV) 2002 ZOSTER VACCINE (1 of 2) 2002 COVID-19 Vaccine (1 - 2023- season) 2024 INFLUENZA VACCINE 02/21/2025 Insurance [employer] A & B Care Teams Circus Laborer Relationship Specialty Start Date End Date Blaine Kyle MD [address] [facility] [address] [place] [address] PCP - General Family Medicine 08/31/18
--- OUTSIDE RECORDS SUMMARY | 2025-01-15 13:36 | XMS_ITS | Patient Health Record ---
Author Organization [facility] Address [address] [place] [id number] Care Team Providers Care Product Safety Technical Assistant Name Role Phone Blaine Kyle Primary Care Provider Allergies Allergen (clinical drug ingredient) Drug/Non Drug Allergy documented on EMR Reaction Allergy Type Onset Date Status angiotensin-converting enzyme inhibitor (FN) JOSEPH Inhibitors Cough Drug Allergy Acti ve Results Component Value Reference Range Notes Influenza Screen (in house) Reviewed date:08/22/2024 12:35:23 PM Interpretation: Performing Lab: Notes/Report: results Pos A Glucose (In-House) Reviewed date:12/28/2024 12:14:44 PM Interpretation:123 Performing Lab: Notes/Report: 123 blood glucose 123 74 - 106 mg/dL Glycohemoglobin A1c (in hous e) Reviewed date:12/28/2024 12:14:44 PM Interpretation:5.5 Normal Performing Lab: Notes/Report: 5.5 Normal glycohemoglobin 5.5% 5 - 6.5 % P-Comprehensive Metabolic Pa harleen (CMP) Reviewed date:12/28/2024 12:14:43 PM Interpretation:Normal Performing Lab: Notes/Report: Test performed by [facility] [address] [place] [address] , [address], [place] [address] Tyrese Zavaleta MD, Exercise Manager CLIA: [id number] Sodium 137 135-145 mmol/L Potassium 4.3 3.5-5.3 [...] Interpretation:Normal Performing Lab: Notes/Report: Test performed by [facility] [address] [place] [address] , [address], [place] [address] Tyrese Zavaleta MD, Exercise Manager CLIA: [id number] Ferritin 136.0 13.0-301.0 ng/mL P-Lipid Panel Reviewed date:12/28/2024 12:14:43 PM Interpretation:chol 209, non-hdl 149 Performing Lab: Notes/Report: Test performed by [facility] [address] [place] [address] , [address], [place] [address] Tyrese Zavaleta MD, Exercise Manager CLIA: [id number] Cholesterol 209 <200 mg/dL Triglycerides 134 <150 [...] Interpretation:Normal Performing Lab: Notes/Report: Test performed by [facility] [address] [place] [address] , [place] [address] Tyrese Zavaleta MD, Exercise Manager CLIA: [id number] TSH reflex to FT4 2.35 0.43-5.25 mU/L P-Microalbumin/Creatinine, R andom Urine Sample Reviewed date:12/28/2024 12:14:43 PM Interpretation:Normal Performing Lab: Notes/Report: Test performed by [facility] [address] [place] [address] , [place] [address] Tyrese Zavaleta MD, Exercise Manager CLIA: [id number] Albumin/Creatinine Ratio, Urine <13.76 0-30 ug/m g Microalbumin, Urine, Random <0.3 Creatinine, Urine 21.8 Medications Medication SIG (Take, Route, Frequency, Duration) Notes Start Date End Date Status Tylenol Extra Strength 500 MG 2 tab(s) orally every 6 hours Active Aspirin Adult Low Dose 81 MG 1 tab(s) orally once a day Active Atorvastatin Calcium 40 MG 1 tablet oral ly once a day; Duration: 90 days Active Calcium + Vitamin D3 600-5 MG-MCG 1 tab(s) orally once daily Active AREDS AREDS 1 BID WITH MEALS A ctive PreserVision AREDS - as directed Orally Active amLODIPine Besylate 5 MG 1 tablet Orally Once a day Active Irbesartan-hydroCHLOROthiaz anoop 300-12.5 MG 1 tab(s) orally once a day Active Melatonin 5 MG 1 [...] 1 cap(s) orally once a day Active Immunizations Vaccine Route Administration Date Status Comme nts xFluzone Intradermal (18-64yrs)-trivalent ID Intradermal 02/26/2014 Administered xFluzone High Dose-private (65yr&older) Unknown 04/25/2021 Administered xFlu shot-36 months and older IM Intramuscular 04/08/2007 Administered xFlu shot-36 months and older IM Intramuscular 04/13/2008 Administered xFlu shot-36 months and older IM Intramuscular 02/12/2009 Administered tuberculin (ppd) ID Intradermal 06/08/2008 Administered Prevnar (PCV20) IM Intramuscular 06/29/2022 Administered Prevnar (PCV13) IM Intramuscular 07/01/2021 Administered PNEUMOVAX 23 VACCINE IM Intramuscular 04/01/2018 Administe red Fluzone PF Quad (6-35 months) Unknown 02/24/2022 Administered Fluzone High Dose (65yr and older) IM Intramuscular 03/24/2019 Administered COVID 19 Pfizer Unknown 05/20/2020 Administered COVID 19 Pfizer Unknown 06/06/2020 Administered COVID 19 Pfizer Unknown 02/20/2021 Administered Problems Problem Type SNOMED Code ICD Code Onset Dates Problem Status W/U Status Risk Notes Problem Essential hypertension (01563538) Essential hypertension (I10) Active confirmed Problem Disorder of lumbar disc (964007220) Lumbar disc disease (M51.9) Active confirmed Problem Body mass index 30+ - obesity (002186356) BMI 30.0-30.9,adult (Z68.30) Active confirmed Problem Sciatica (36699394) Lumbago with sciatica, right side (M54.41) Active confirmed Problem Chronic pain (74160365) Other chronic pain (G89.29) Active confirmed Problem Sciatica (41883658) Lumbago with sciatica, left side (M54.42) Active confirmed Problem Restless legs (13746419) Restless leg (G25.81) Active confirmed Problem Constipation (12454629) Constipation, unspecified constipation type (K59.00) Active confirmed Problem Allergic rhinitis (94529532) Allergic rhinitis, unspecified allergic rhinitis type (J30.9) Active confirmed Problem Sciatica (09961133) Left-sided l ow back pain with left-sided sciatica (M54.42) Active confirmed Problem Displacement of lumbar intervertebral disc without myelopathy (78273357) Bulging lumbar disc (M51.26) Active confirmed Problem Gastroesophageal reflux disease (281564485) Gastroesophageal reflux disease, esophagitis presence not specified (K21.9) Active confirmed Problem Arthropathy of lumba r facet joint (088207011) Lumbar facet arthropathy (M46.96) Active confirmed Problem Intervertebral disc disorder of lumbar region with myelopathy (39041842) 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 confirmed Problem Impaired fasting glycaemia (939632271) IFG (impaired fasting glucose) (R73.01) Active confirmed Problem Pure hypercholesterolemia (943960211) Pure hypercholesterolemia (E78.00) Active confirmed Problem Basal cell carcinoma of face (805690505) Basal cell carcinoma, face (C44.310) Active confirmed Vital Signs Heart Rate 67 /min 12/27/2024 Blood pressure diastolic 78 mm Hg 12/27/2024 Height 65 in 12/27/2024 Blood pressure systolic 130 mm Hg 12/27/2024 Weight 182.8 lbs 12/27/2024 BMI 30.42 kg/m2 12/27/2024 Encounters Encounter Location Date Provider Diagnosis [facility] [address] [place], [place] [id number] 06/28/2024 Blaine Blacklick Essential hypertensi on I10 ; Pure hypercholesterolemia E78.00 and Allergic rhinitis, unspecified allergic rhinitis type J30.9 [facility] [place] [address] [facility] [address] [place] [id number] 08/21/2024 Blaine Blacklick Influenza A J10.1 [facility] [place] [address] [facility] [address] [place] [id number] 12/27/2024 Blaine Blacklick Essential hypertensi on I10 ; Pure hypercholesterolemia E78.00 ; IFG (impaired fasting glucose) R73.01 ; Restless leg G25.81 ; Breast cancer screening by mammogram Z12.31 ; Osteoporosis screening Z13.820 ; Gastroesophageal reflux disease, esophagitis presence not specified K21.9 and BMI 30.0-30.9,adult Z68.30 [facility] [place] [address] [place] [id number] 12/28/2024 Blaine Blacklick Assessments Encounter Date Diagnosis (ICD Code) Assessment Notes Treatment Notes Treatment Clinical Notes Section Notes 06/28/2024 Pure hypercholesterolemia (ICD-10 - E78.00) 08/21/2024 Influenza A (ICD-10 - J10.1) 12/27/2024 Essential hypertensi on (ICD-10 - I10) 06/28/2024 Essential hypertensi on (ICD-10 - I10) 12/27/2024 Pure hypercholesterolemia (ICD-10 - E78.00) 12/27/2024 IFG (impaired fastin g glucose) (ICD-10 - R73.01) 06/28/2024 Allergic rhinitis, unspecified allergic rhinitis type (ICD-10 - J30.9) 12/27/2024 Restless leg (ICD-10 - G25.81) 12/27/2024 Breast cancer screen ing by mammogram (ICD-10 - Z12.31) 12/27/2024 Osteoporosis screeni ng (ICD-10 - Z13.820) 12/27/2024 Gastroesophageal ref lux disease, esophagitis presence not specified (ICD-10 - K21.9) 12/27/2024 BMI 30.0-30.9,adult (ICD-10 - Z68.30) Plan Of Treatment Pending Test Test Name Order Date DEXA Hip and Spine 12/27/2024 Mammogram 12/27/2024 Next Appt Details Provider Name:Blaine Carlton ry, 06/27/2025 09:45:00 AM, [address], [address], [place], [place], [id number], Insurance Providers Payer Name Payer Address Payer Phone Subscriber Number Group Number Insured Name Patient Relationship to Insured Coverage Start Date Coverage End Date MEDICARE PART B [address] [address] [place] [address] [id number] NathanLeslie Self - patient is the insured [employer] MEDICARE SUPPLEMENT [address] [address] [place], [place] [id number] NathanLeslie marcus Self - patient is the insured Medical (General) History Medical History History ICD Code Hypertension Lumbar Disc Disease with lef t S1 radiculopathy and spinal stenosis MRI 2009 & 2013, s/p neurosurgery eval in 2010 Carpal Tunnel Smoking, Quit 2005 Restless Leg Syndrome Sleep Apnea SUPERVIS[employer] MACHINE - Dr. Fatima GI - Dr. Navarro Hyperlipidemia Impaired fasting glucose allergic rhinitis Surgical History Surgery Date(Month/Year) Hospitalization History Reason Date(Month/Year)
== END 2025-01-15 23:59 ==
LOC: RAD 13:29
PROVIDERS: PCP Family Medicine; Visit Provider Family Medicine
DX: M81.0 Age-related osteoporosis without current pathological fracture (principal); Z12.31 Encounter for screening mammogram for malignant neoplasm of breast; Z78.0 Asymptomatic menopausal state
CPT/HCPCS: 77063; 77067; 77080